=== PATIENT | female | born 1975 | race Two or more races ===

== ENCOUNTER 2019-02-21 17:19 | Emergency (ER) | payer SELFPAY ==
[~2019-02-21] VITALS: Ht 165.1 cm; Wt 90.7 kg
[2019-02-21 19:32] VITALS: BP 142/92
[2019-02-21] MEDS ORDERED: KETOROLAC TROMETH 60MG/2ML VIAL IM ONE (19:45)
== END 2019-02-21 20:35 | disposition home or self-care (01) ==
LOC: EDBD 17:19 → ER 17:23
DX: S01.01XA Laceration without foreign body of scalp, initial encounter (principal); V80.010A Animal-rider injured by fall from or being thrown from horse in noncollision accident, initial encounter; Y93.89 Activity, other specified; Y99.8 Other external cause status; Y92.89 Other specified places as the place of occurrence of the external cause
CPT/HCPCS: 70450; 72125; 73030; 96372; 99284; J1885